=== PATIENT | female | born 1980 | race American Indian/Alaskan Native ===

== ENCOUNTER 2017-06-12 23:25 | Emergency (ER) | payer BC, MEDICAID ==
[2017-06-13 00:11] VITALS: BMI 26.4
[2017-06-13] MEDS ORDERED: DiphenhydrAMINE 50 mg/ml Inj IVP STA (00:20)
[2017-06-13] MEDS ORDERED: Sodium Chloride 0.9% 1,000 ML IV STA (00:21)
--- NOTE | 2017-06-13 00:27 | ED PDOC ---
Arrival/HPI <Rishi Brown - Last Filed: 06/13/17 00:30> - General Historian: Patient <Sofia Cartwright PA-C - Last Filed: 06/13/17 16:33> - General Chief Complaint: Headache Time Seen by Provider: 06/13/17 00:03 - History of Present Illness Narrative History of Present Illness (Text): 06/13/17 00:23 36 yo F past medical history of migraines and an WI in December of this year, reports sudden onset of constant pressure hot sensation to bilateral temples of her head radiating to the back of her head and neck which started this evening while her and her were trying to be intimate. Otherwise: (-) thunderclap headache, (-) worse headache of life, (+) nausea, (-) vomiting, (-) photophobia, (-) phonophobia, (-) URI symptoms, (-) fever, (-) trauma, (-) subjective neurologic symptoms. Reports not taking any analgesic medications for her symptoms. 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 - Pulmonary Hx Respiratory Disorders: No - Neurological Hx Neurological Disorder: No - HEENT Hx HEENT Disorder: No - Renal Hx Renal Disorder: No - Endocrine/Metabolic Hx Endocrine Disorders: No - Hematological/Oncological Hx Anemia: Yes - Integumentary Hx Dermatological Disorder: No - Musculoskeletal/Rheumatological Hx Musculoskeletal Disorders: No - Gastrointestinal Other/Comment: acid reflux - Genitourinary/Gynecological Hx Genitourinary Disorders: No - Psychiatric Hx Depression: No Hx Emotional Abuse: No Hx Physical Abuse: No Hx Substance Use: No - Past Surgical History Past Surgical History: No Previous - Surgical History Hx Section: Yes (x2) - Anesthesia Hx Anesthesia: No Hx Anesthesia Reactions: No Hx Malignant Hyperthermia: No - Suicidal Assessment Feels Threatened In Home Enviroment: No <Sofia Cartwright PA-C - Last Filed: 06/13/17 16:33> Family/Social History - Physician Review Nursing Documentation Reviewed: Yes Family/Social History: Diabetes, Hypertension, CAD/WI Smoking Status: Never Smoked Hx Alcohol Use: No Hx Substance Use: No Hx Substance Use Treatment: No <Sofia Cartwright PA-C - Last Filed: 06/13/17 16:33> Allergies/Home Meds <Rishi Brown - Last Filed: 06/13/17 00:30> <Sofia Cartwright PA-C - Last Filed: 06/13/17 16:33> Allergies/Adverse Reactions: Allergies latex Allergy (Verified 06/12/17 23:51) RASH nut - unspecified Allergy (Verified 06/12/17 23:51) RASH Penicillins Allergy (Verified 06/12/17 23:54) RASH shellfish derived Allergy (Verified 06/12/17 23:53) RASH Home Medications: Home Meds Medication Instructions Recorded Confirmed No Known Home Med 08/08/12 06/12/17 Review of Systems - Review of Systems Constitutional: absent: Fatigue, Weight Change, Fevers Cardiovascular: absent: Chest Pain, Palpitations, Edema Gastrointestinal: Nausea. absent: Abdominal Pain, Constipation, Vomiting Genitourinary Female: absent: Dysuria, Frequency, Hematuria Musculoskeletal: absent: Arthralgias, Back Pain, Neck Pain Skin: absent: Rash, Pruritis, Skin Lesions Neurological: Headache. absent: Dizziness, Focal Weakness <Sofia Cartwright PA-C - Last Filed: 06/13/17 16:33> Physical Exam <Rishi Brown - Last Filed: 06/13/17 00:30> <Sofia Cartwright PA-C - Last Filed: 06/13/17 16:33> - Physical Exam Narrative Physical Exam (Text): 06/13/17 00:28 GENERAL APPEARANCE: Patient is awake, alert, oriented x 3, in moderate painful distress. SKIN: Warm, dry; (-) cyanosis; (-) rash. HEAD: (-) scalp swelling or tenderness, (-) temporal artery tenderness. EYES: (-) conjunctival pallor, (-) scleral icterus. ENMT: (-) sinus tenderness; mucous membranes moist. NECK: (-) tenderness, (-) stiffness, (-) meningismus, (-) lymphadenopathy. CHEST AND RESPIRATORY: (-) rales, (-) rhonchi, (-) wheezes; breath sounds equal bilaterally. HEART AND CARDIOVASCULAR: (-) irregularity; (-) murmur, (-) gallop. ABDOMEN AND GI: Soft; (-) tenderness. EXTREMITIES: (-) deformity. NEURO AND PSYCH: Mental status as above. record librarian: Pupils equal and reactive; EOMI ; (-) facial asymmetry; tongue and uvula midline. Strength and DTRs symmetric. Babinski normal bilaterally. (Sofia Cartwright PA-C) Vital Signs Temp Pulse Resp BP Pulse Ox 06/13/17 02:18 98.2 F 72 17 130/78 98 06/12/17 23:35 99.0 F 90 98 H 131/90 Medical Decision Making <Rishi Brown - Last Filed: 06/13/17 00:30> <Sofia Cartwright PA-C - Last Filed: 06/13/17 16:33> ED Course and Treatment: 06/13/17 00:28 36 yo F past medical history of migraines and an WI in December of this year, reports sudden onset of constant pressure heart sensation to bilateral temples of her head radiating to the back of her head and neck which started this evening while her and her were trying to be intimate. Plan: -- Labs -- IV fluids -- Uhcg -- Reglan IV / Benadryl IV -- Reassess and disposition -- CT head [facility] (-). Patient sent to CT stat. CT head (-). Lab and CT results d/w the patient in great detail. Patient refused reglan and benadryl IV for her symptoms. She is refusing any other treatments being offered to her. Patient asked to reconsider, however she still refuses. On re-evaluation, patient laying in bed in mild painful distress, neck supple with no signs of meningismus, repeat neuro exam shows no focal findings. VS : T 98.2 P 72 BP 130/78 R 17 O2sat 98%RA. Patient refuses further care, evaluation or treatment in the ER. Patient informed of the reasons for the following and planned treatment, which patient understands, however still refuses. Patient informed of the risk and benefits of treatment. Informed that the risk could include worsening of current conditions, undiagnosed conditions, disability or even . Patient understands the following risk and the benefits of treatment. Patient has the capacity to make decisions and still refuses treatment by RN, TOYA and ER MD. Patient encouraged to return to the ER at any time and to follow up with pmd. (Chay RIDLEY,Sofia Boyd) - Lab Interpretations Lab Results: 06/13/17 00:30 06/13/17 00:30 Lab Results 06/13/17 00:30: Sodium 140, Potassium 3.9, Chloride 104, Carbon Dioxide 25, Anion Gap 14, BUN 10, Creatinine 0.5 L, Est GFR ( Amer) > 60, Est GFR ( Non-Af Amer) > 60, Random Glucose 108, Calcium 9.4, Total Bilirubin 0.3, AST 19 , ALT 26, Alkaline Phosphatase 67, Total Protein 7.7, Albumin 4.6, Globulin 3.0 , Albumin/Globulin Ratio 1.5 06/13/17 00:30: PT 11.7, INR 1.07, APTT 31.1 06/13/17 00:30: WBC 11.7 H D, RBC 4.34, Hgb 12.3, Hct 37.1, MCV 85.5, MCH 28.3, MCHC 33.2, RDW 12.4, Plt Count 275, MPV 9.5, Gran % 77.8 H, Lymph % (Auto) 16.0 L, [place] % (Auto) 5.3, Eos % (Auto) 0.8 L, Baso % (Auto) 0.1, Gran # 9.09 H, Lymph # 1.9, [place] # 0.6, Eos # 0.1, Baso # 0.01 - RAD Interpretation Narrative RAD Interpretations (Text): 06/13/17 01:46 CT Head w/o contrast : FINDINGS: Brain: Ventricles are normal in size and configuration. There is no midline shift. There are no intraaxial or extra-axial mass lesions or areas of hemorrhage. There are no abnormal fluid collections. Brown-white differentiation is maintained. Ventricles: See above. Bones: Cranial vault is intact. Soft tissues: unremarkable Sinuses: There is no acute sinusitis. Ears and mastoids: Middle ears and mastoids are unremarkable. There is streak artifact from an earring Orbits: Orbital contents are unremarkable. IMPRESSION: No acute intracranial abnormality Dictated and Authenticated by: Karlie Pimentel MD 06/13/2017 1:40 AM Eastern Time ([place] & [place]) (Sofia Cartwright PA-C) Radiology Orders: 06/13/17 00:20 HEAD W/O CONTRAST [CT] Stat - Medication Orders Current Medication Orders: Discontinued Medications Diphenhydramine HCl (Benadryl) 25 mg IVP STAT STA Stop: 06/13/17 00:21 Last Admin: 06/13/17 02:11 Dose: Not Given Non-Admin Reason: Patient Refused Sodium Chloride (Sodium Chloride 0.9%) 1,000 mls @ 1,000 mls/hr IV .Q1H STA Stop: 06/13/17 01:20 Last Admin: 06/13/17 02:12 Dose: Not Given Non-Admin Reason: Patient Refused Metoclopramide HCl (Reglan) 10 mg IVP STAT STA Stop: 06/13/17 00:25 Last Admin: 06/13/17 02:12 Dose: Not Given Non-Admin Reason: Patient Refused - 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 JODY has examined the patient and agrees with the treatment plan. <Rishi Brown - Last Filed: 06/13/17 00:30> - 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 <Sofia Cartwright PA-C - Last Filed: 06/13/17 16:33> Disposition/Present on Arrival <Rishi Brown - Last Filed: 06/13/17 00:30> - Present on Arrival Any Indicators Present on Arrival: No History of DVT/PE: No History of Uncontrolled Diabetes: No Urinary Catheter: No History of Decub. Ulcer: No History Surgical Site Infection Following: None - Disposition Have Diagnosis and Disposition been Completed?: Yes Disposition Time: 01:45 Patient Plan: Other (Pt wishes to leave AMA) <Sofia Cartwright PA-C - Last Filed: 06/13/17 16:33> - Disposition Diagnosis: Headache Disposition: AGAINST MEDICAL ADVICE Condition: UNKNOWN Discharge Instructions (ExitCare): Acute Headache (ED), Against Medical Advice (ED) Print Language: TAMAZIGHT Additional Instructions: Thank you for letting us take care of you today. You were treated for headache. The emergency medical care you received today was directed at your acute symptoms. Return to the Emergency Department if your symptoms worsen, do not improve, if you have any other problems, or if you change your mind. Please contact your doctor in 2 days for re-evaluation and follow up. Bring any paperwork you were given at discharge with you along with any medications you are taking to your follow up visit. Our treatment cannot replace ongoing medical care by a primary care provider (PCP) outside of the emergency department. Thank you for allowing the [facility] team to be part of your care today. If you had a CT scan: A Radiologist will review the ED reading if any change in treatment is needed we will contact you. Forms: [employer] (Latvian)
[2017-06-13 01:04] LABS: BASO # 0.01 K/mm3 (0.0-2.0); BASO % 0.1 % (0.0-3.0); EOS # 0.1 (0.0-0.7); EOS % 0.8 % (1.5-5.0); GRAN # 9.09 (1.4-6.5); GRAN % 77.8 % (50.0-68.0); HEMOGLOBIN 12.3 g/dL (12.0-16.0); LYMPH # 1.9 (1.2-3.4); MEAN CELL VOLUME 85.5 fl (80.0-105.0); MEAN CORPUSCULAR HEMOGLOBIN 28.3 pg (25.0-35.0); MEAN CORPUSCULAR HGB CONC 33.2 g/dl (31.0-37.0); MEAN PLATELET VOLUME 9.5 fl (7.0-11.0); MONO # 0.6 (0.1-0.6); MONO % 5.3 % (1.0-6.0); RBC 4.34 10^6/uL (3.5-6.1); RED CELL DISTRIBUTION WIDTH 12.4 % (11.5-14.5); WHITE BLOOD COUNT 11.7 10^3/ul (4.5-11.0)
[2017-06-13 01:08] LABS: ALB/GLOB RATIO 1.5 (1.1-1.8); ALBUMIN 4.6 g/dL (3.0-4.8); ALT/SGPT 26 U/L (7-56); AST/SGOT 19 U/L (14-36); BLOOD UREA NITROGEN 10 mg/dL (7-21); CALCIUM 9.4 mg/dL (8.4-10.5); GFR AFRICAN-AMERICAN > 60; GFR NON-AFRICAN AMERICAN > 60
[2017-06-13 01:38] LABS: INR 1.07 (0.93-1.08); PARTIAL THROMBOPLASTIN TIME 31.1 Seconds (25.1-36.5); PROTHROMBIN TIME 11.7 SECONDS (9.4-12.5)
--- NOTE | 2017-06-13 01:41 | CT ---
EXAM: CT Head Without Intravenous Contrast EXAM DATE/TIME: 06/13/2017 12:20 AM CLINICAL HISTORY: 36 years old, female; Pain; Headache; Migraine; Aura effect not specified TECHNIQUE: Axial computed tomography images of the head/brain without intravenous contrast. All CT scans at this facility use one or more dose reduction techniques, viz.: automated exposure control; ma/kV adjustment per patient size (including targeted exams where dose is matched to indication; i.e. head); or iterative reconstruction technique. Coronal and sagittal reformatted images were created and reviewed. COMPARISON: There are no prior studies for comparison. FINDINGS: Brain: Ventricles are normal in size and configuration. There is no midline shift. There are no intra-axial or extra-axial mass lesions or areas of hemorrhage. There are no abnormal fluid collections. Brown-white differentiation is maintained. Ventricles: See above. Bones: Cranial vault is intact. Soft tissues: unremarkable Sinuses: There is no acute sinusitis. Ears and mastoids: Middle ears and mastoids are unremarkable. There is streak artifact from an earring Orbits: Orbital contents are unremarkable. IMPRESSION: No acute intracranial abnormality
[2017-06-13 02:20] VITALS: BP 130/78; PULSE 72; RESP 17; TEMP 98.2; O2SAT 98
== END 2017-06-13 02:20 | disposition left against medical advice (07) ==
LOC: ED 23:25
DX: R51 Headache (principal)